=== PATIENT | female | born 1940 | race Caucasian/White ===

== ENCOUNTER 2024-04-09 16:03 | Inpatient (IN) | payer OTHER ==
[~2024-04-09] VITALS: Ht 149.9 cm; Wt 48.1 kg
[2024-04-09 16:09] VITALS: BP 149/60; PULSE 89; RESP 15; TEMP 97.1; O2SAT 96
[2024-04-09 18:05] LABS: BASOPHILS # (AUTO) 0.1 K/uL (0.00-0.22); BASOPHILS % (AUTO) 0.7 % (0.0-2.0); EOSINOPHILS # (AUTO) 0.6 K/uL (0-0.4); EOSINOPHILS % (AUTO) 5.9 % (0.0-4.0); HEMATOCRIT 39.1 % (36-48); HEMOGLOBIN 12.8 g/dL (12.0-16.0); LYMPHOCYTES # (AUTO) 1.9 K/uL (2.5-16.5); LYMPHOCYTES % (AUTO) 18.7 % (20.5-51.1); MEAN CORPUSCULAR HEMOGLOBIN 28 pg (27-31); MEAN CORPUSCULAR HGB CONC 33 g/dL (33-37); MEAN CORPUSCULAR VOLUME 85.6 fL (80-94); MONOCYTES # (AUTO) 1.1 K/uL (0.8-1.0); MONOCYTES % (AUTO) 10.2 % (1.7-9.3); NEUTROPHILS # (AUTO) 6.7 K/uL (1.8-7.7); NEUTROPHILS % (AUTO) 64.5 % (42.2-75.2); PLATELET COUNT (AUTO) 369 K/uL (140-450); RED BLOOD CELL COUNT(AUTO) 4.57 MIL/uL (4.20-5.40); RED CELL DISTRIBUTION WIDTH 13.1 % (11.6-13.7); WHITE BLOOD COUNT (AUTO) 10.4 K/uL (4.8-10.8)
[2024-04-09 18:17] LABS: ANION GAP 12.1 (8-16); CALCIUM 8.9 mg/dL (8.5-10.1); CARBON DIOXIDE 27.7 mmol/L (21-32); CHLORIDE 102 mmol/L (98-107); CREATININE 0.9 mg/dL (0.6-1.3); GLUCOSE 178 mg/dL (74-106); POTASSIUM 3.8 mmol/L (3.5-5.1); SODIUM SERUM 138 mmol/L (136-145); UREA NITROGEN, BLOOD 19 mg/dL (7-18)
[2024-04-09 18:21] LABS: ALANINE AMINOTRANSFERASE 23 U/L (12-78); ALBUMIN 2.9 g/dL (3.4-5.0); ALKALINE PHOSPHATASE 144 U/L (50-136); ASPARTATE AMINOTRANSFERASE 20 U/L (15-37); CREATINE KINASE, TOTAL 253 U/L (26-192); INR 0.93 (0.8-1.2); PARTIAL THROMBOPLASTIN TIME 24.1 secs (22-35.6); PROTHROMBIN TIME 9.8 secs (10.8-13.4); TOTAL BILIRUBIN 0.2 mg/dL (0.0-1.0); TOTAL PROTEIN, SERUM 7.8 g/dL (6.4-8.2)
[2024-04-09 18:23] LABS: LACTIC ACID 1.2 mmol/L (0.4-2.0)
[2024-04-09] MEDS: LORazepam 1 MG TAB PO ONE (18:23)
[2024-04-09 18:49] LABS: APPEARANCE,URINE SL CLOUDY (CLEAR); BILIRUBIN,URINE NEGATIVE (NEGATIVE); BLOOD, URINE NEGATIVE (NEGATIVE); LEUKOCYTE ESTERASE ,URINE 1+ (NEGATIVE); NITRITE, URINE POSITIVE (NEGATIVE); PROTEIN,URINE NEGATIVE (NEGATIVE); UGLUCOSE TRACE (NEGATIVE)
[2024-04-09 18:50] LABS: COLOR,URINE AMBER (YELLOW)
[2024-04-09 18:58] LABS: RBC,URINE 0-5 /HPF (0-5); WBC,URINE 0-5 /HPF (0-5)
[2024-04-09 18:59] LABS: BACTERIA,URINE >30 (MANY) /HPF (None Seen); SQUAMOUS EPITHELIAL CELL,UR 0-3 (FEW) /LPF (0-3 (FEW))
[2024-04-09] MEDS ORDERED: cefTRIAXone 1,000 MG VIAL ONE (19:13)
[2024-04-09] MEDS ORDERED: ACETAMINOPHEN 325 MG TAB PO PRN (19:30)
[2024-04-09] MEDS ORDERED: CRUSHER, PILL MC ONE (20:01)
[2024-04-09] MEDS: OLANZapine 5 MG ODT PO ONE (20:13)
[2024-04-09] MEDS: OLANZapine 10 MG VIAL IM ONE ×3 (20:23→23:24)
[2024-04-09] MEDS ORDERED: INSU100S5 IJ (20:50)
[2024-04-09] MEDS ORDERED: ATOR40TA40 PO (20:50)
[2024-04-09] MEDS ORDERED: MAGN400S60 PO (20:50)
[2024-04-09] MEDS ORDERED: CALC-1646 PO (20:50)
[2024-04-09] MEDS ORDERED: ACET-10509 PO (20:50)
[2024-04-09] MEDS ORDERED: BISA-213 RC (20:50)
[2024-04-09] MEDS ORDERED: CLOP300T2 PO (20:50)
[2024-04-09] MEDS ORDERED: ASPI-1822 PO (20:50)
[2024-04-09] MEDS ORDERED: DONE5TAB6 PO (20:50)
[2024-04-09] MEDS ORDERED: INSU100I74 SQ (20:50)
[2024-04-09] MEDS ORDERED: DICL100G32 TP (20:50)
[2024-04-09] MEDS ORDERED: MULT-2611 PO (20:50)
[2024-04-09] MEDS ORDERED: NIFE30TE5 PO (20:50)
[2024-04-09] MEDS ORDERED: OLANZapine 10 MG VIAL IM ONE (22:42)
[2024-04-09 23:47] VITALS: PULSE 84; RESP 18; O2SAT 97
[2024-04-10 00:40] VITALS: BP 117/62; PULSE 84; RESP 18; TEMP 97.6; O2SAT 97
[2024-04-10] MEDS: NACL 0.9% 1,000 ML IV SCH (02:12)
[2024-04-10] MEDS: cefTRIAXone 1,000 MG VIAL ONE (02:17)
[2024-04-10 07:41] LABS: BASOPHILS % (AUTO) 0.4 % (0.0-2.0); EOSINOPHILS # (AUTO) 0.6 K/uL (0-0.4); HEMATOCRIT 35.9 % (36-48); HEMOGLOBIN 11.9 g/dL (12.0-16.0); LYMPHOCYTES # (AUTO) 1.5 K/uL (2.5-16.5); LYMPHOCYTES % (AUTO) 14.7 % (20.5-51.1); MEAN CORPUSCULAR HEMOGLOBIN 29 pg (27-31); MEAN CORPUSCULAR HGB CONC 33 g/dL (33-37); MEAN CORPUSCULAR VOLUME 86.2 fL (80-94); MONOCYTES # (AUTO) 1.1 K/uL (0.8-1.0); MONOCYTES % (AUTO) 10.8 % (1.7-9.3); NEUTROPHILS # (AUTO) 6.7 K/uL (1.8-7.7); NEUTROPHILS % (AUTO) 68.1 % (42.2-75.2); PLATELET COUNT (AUTO) 327 K/uL (140-450); RED BLOOD CELL COUNT(AUTO) 4.17 MIL/uL (4.20-5.40); RED CELL DISTRIBUTION WIDTH 12.8 % (11.6-13.7); WHITE BLOOD COUNT (AUTO) 9.9 K/uL (4.8-10.8)
[2024-04-10 07:52] LABS: ANION GAP 12.3 (8-16); CALCIUM 8.9 mg/dL (8.5-10.1); CARBON DIOXIDE 27.9 mmol/L (21-32); CHLORIDE 105 mmol/L (98-107); CREATININE 0.8 mg/dL (0.6-1.3); GLUCOSE 160 mg/dL (74-106); POTASSIUM 4.2 mmol/L (3.5-5.1); SODIUM SERUM 141 mmol/L (136-145); UREA NITROGEN, BLOOD 16 mg/dL (7-18)
[2024-04-10 08:00] VITALS: BP 137/52; PULSE 76; PULSE 87; RESP 17; RESP 18; TEMP 97.1; O2SAT 97
[2024-04-10] MEDS: ATORVASTATIN 20 MG TAB PO SCH (09:51)
[2024-04-10] MEDS: NIFEdipine 30 MG TABER PO SCH (09:51)
[2024-04-10] MEDS: DONEPEZIL 10 MG TAB PO SCH (09:51)
[2024-04-10] MEDS: ASPIRIN 81 MG TAB.CHEW PO SCH (09:52)
[2024-04-10] MEDS ORDERED: DEXTROSE 50% 50 ML SYR IVP PRN (13:40)
[2024-04-10 16:00] VITALS: BP 141/55; PULSE 77; RESP 18; TEMP 97.2; O2SAT 93
[2024-04-10] MEDS: INSULIN LISPRO SLIDING SCALE 100 UNITS/ML VIAL SUBQ PRN (17:02)
[2024-04-10] MEDS: BLOOD GLUCOSE MONITORING 1 DEV DEV FS SCH (17:10)
[2024-04-10 20:00] VITALS: BP 143/71; PULSE 100; RESP 18; TEMP 98; O2SAT 93
[2024-04-11 03:54] VITALS: BP 148/74; PULSE 98; RESP 18; TEMP 98.2; O2SAT 94
[2024-04-11 07:18] LABS: BASOPHILS % (AUTO) 0.5 % (0.0-2.0); EOSINOPHILS # (AUTO) 0.6 K/uL (0-0.4); EOSINOPHILS % (AUTO) 6.4 % (0.0-4.0); HEMATOCRIT 36.2 % (36-48); HEMOGLOBIN 12.1 g/dL (12.0-16.0); LYMPHOCYTES # (AUTO) 1.7 K/uL (2.5-16.5); LYMPHOCYTES % (AUTO) 16.5 % (20.5-51.1); MEAN CORPUSCULAR HEMOGLOBIN 29 pg (27-31); MEAN CORPUSCULAR HGB CONC 34 g/dL (33-37); MEAN CORPUSCULAR VOLUME 85.6 fL (80-94); MONOCYTES # (AUTO) 0.8 K/uL (0.8-1.0); MONOCYTES % (AUTO) 8.4 % (1.7-9.3); NEUTROPHILS # (AUTO) 6.9 K/uL (1.8-7.7); NEUTROPHILS % (AUTO) 68.2 % (42.2-75.2); PLATELET COUNT (AUTO) 326 K/uL (140-450); RED BLOOD CELL COUNT(AUTO) 4.22 MIL/uL (4.20-5.40); RED CELL DISTRIBUTION WIDTH 12.8 % (11.6-13.7)
[2024-04-11 07:32] LABS: MAGNESIUM 1.7 mg/dL (1.8-2.4); PHOSPHORUS 3.1 mg/dL (2.5-4.9)
[2024-04-11 07:33] LABS: ANION GAP 12.2 (8-16); CALCIUM 8.7 mg/dL (8.5-10.1); CARBON DIOXIDE 26.6 mmol/L (21-32); CHLORIDE 104 mmol/L (98-107); CREATININE 0.8 mg/dL (0.6-1.3); GLUCOSE 188 mg/dL (74-106); POTASSIUM 3.8 mmol/L (3.5-5.1); SODIUM SERUM 139 mmol/L (136-145); UREA NITROGEN, BLOOD 19 mg/dL (7-18)
[2024-04-11 07:41] LABS: CREATINE KINASE, TOTAL 230 U/L (26-192)
[2024-04-11 08:00] VITALS: BP 185/71; PULSE 81; RESP 18; TEMP 98.9; O2SAT 100
[2024-04-11 08:45] VITALS: PULSE 99
[2024-04-11 16:00] VITALS: BP 121/55; PULSE 80; RESP 18; TEMP 98.8; O2SAT 99
[2024-04-11 20:00] VITALS: BP 123/68; PULSE 74; RESP 18; RESP 20; TEMP 97.8; O2SAT 95; O2SAT 97
[2024-04-11] MEDS: MAGNESIUM OXIDE 400 MG TAB PO ONE (20:05)
[2024-04-11] MEDS: MAGNESIUM OXIDE 400 MG TAB ONE (22:03)
[2024-04-12 04:00] VITALS: BP 116/58; PULSE 76; RESP 18; TEMP 98.7; O2SAT 99
[2024-04-12 08:00] VITALS: BP 128/54; PULSE 82; RESP 18; RESP 20; TEMP 98; O2SAT 92; O2SAT 95
[2024-04-12 12:00] VITALS: BP 128/54; PULSE 82; RESP 18; TEMP 98; O2SAT 92
[2024-04-12 16:00] VITALS: BP 157/62; PULSE 89; RESP 18; TEMP 97.8; O2SAT 98
[2024-04-12 20:00] VITALS: BP 134/81; PULSE 80; RESP 18; TEMP 97.9; O2SAT 96
[2024-04-12] MEDS: INSULIN LANTUS 100 UNITS/ML 10 ML VIAL SUBQ SCH (21:00)
[2024-04-13 04:00] VITALS: BP 131/74; PULSE 87; RESP 18; TEMP 97.8; O2SAT 93
[2024-04-13 08:00] VITALS: BP 134/81; PULSE 80; RESP 18; TEMP 97.9; O2SAT 96
[2024-04-13] MEDS ORDERED: NITR100C7 PO (09:34)
[2024-04-13 12:00] VITALS: BP 134/81; PULSE 80; RESP 18; TEMP 97.9; O2SAT 96
[2024-04-13 16:00] VITALS: BP 146/58; PULSE 81; RESP 18; TEMP 97.8; O2SAT 96
== END 2024-04-13 18:40 | DRG 70 ==
LOC: MED 16:03 → MMU 19:29 → MTU 20:47
PROVIDERS: ADMIT Student in an Organized Health Care Education/Training Program; ATTEND Student in an Organized Health Care Education/Training Program
DX: G93.41 Metabolic encephalopathy (principal); E43 Unspecified severe protein-calorie malnutrition; N39.0 Urinary tract infection, site not specified; E11.9 Type 2 diabetes mellitus without complications; E78.5 Hyperlipidemia, unspecified; I10 Essential (primary) hypertension; Z86.73 Personal history of transient ischemic attack (TIA), and cerebral infarction without residual deficits; Z68.21 Body mass index [BMI] 21.0-21.9, adult; Z79.82 Long term (current) use of aspirin; Z79.899 Other long term (current) drug therapy
CPT/HCPCS: 36415; 71045; 80048; 80076; 81001; 82550; 82553; 82948; 83605; 83735; 83880; 84100; 84484; 85025; 85610; 85730; 87040; 87081; 87086; 87186; 93005; 96372; 96374; 97112; 97530; 99285; J0696; J1815; J3490; J7060